=== PATIENT | female | born 1970 | race Caucasian/White ===

== ENCOUNTER → 2018-08-05 10:23 | Outpatient (CLI) | payer SELFPAY ==
[2018-08-05 12:24] LABS: Absolute Lymphocyte Count 1.55 X10^3/ul (0.83-4.51); Basophil# 0.02 X10^3/uL; Basophil% 0.3 % (0-1); Eosinophil# 0.09 X10^3/uL; Eosinophils% 1.5 % (0-5); Lymphocyte # 1.55 X10^3/ul (4.0); Lymphocyte % 25.5 % (19-41); Mean Corp Hgb Conc 33.3 g/gl (32-36); Mean Corpuscular Hgb 31.4 pg (27.0-32.0); Mean Corpuscular Volume 94.2 fL (81-99); Mean Platelet Vol. 12.4 fl (6.2-12.0); Monocyte# 0.41 X10^3/uL; Monocyte% 6.7 % (0-10); Neutrophil # 4.01 X10^3/uL (2.7-7.7); Platelet Count 208 K/mm3 (150-450); RBC Distribution Width CV 12.5 % (11.6-14.6); Red Blood Count 4.46 M/mm3 (4.2-5.4); White Blood Count 6.1 K/mm3 (4.4-11.0)
[2018-08-05 12:43] LABS: POSITIVE COUNT NO; POSITIVE DIFFERENTIAL NO; POSITIVE MORPHOLOGY NO
[2018-08-05 12:54] LABS: Color, Urine Yellow (Yellow); Glucose, Dipstick Normal (Normal); Ketone-Dipstick Negative (Negative); Leukocyte Esterase-Dipstick 100 /ul (Negative); Nitrite-Dipstick Negative (Negative); Occult Blood-Urine Negative /ul (Negative); Protein-Dipstick Negative (Negative); Specific Gravity, Urine 1.005 (1.002-1.030); Urine Bilirubin Dipstick Negative (Negative); Urine Clarity Sl. Cloudy (Clear); Urine Urobilinogen Normal (Normal); Urine pH 6.5 (5.0 - 8.0)
[2018-08-05 12:56] LABS: Protein, Urine (Random) 8.7 mg/dL (<11.9); Protein:Creat Ratio 138 mg/g CRE (0-200)
[2018-08-05 12:57] LABS: ALB/GLOB Ratio 1.1 RATIO (0.9-2.4); AST(SGOT) 24 U/L (15-37); Alanine Aminotransfer ALT/SGPT 46 U/L (13-56); Alkaline Phosphatase 73 U/L (45-117); Anion Gap 9 (5-15); BUN 10 mg/dL (7-18); BUN/Creat Ratio 14.1 RATIO (10-20); Calcium,Total 8.9 mg/dL (8.5-10.1); Chloride 105 mmol/L (98-107); Creatinine, Serum 0.71 mg/dL (0.55-1.02); EST Glomerular Filtration Rate 94 mL/min (>60); Est Glom Filt Rate - Afr Amer 114 mL/min (>60); Globulin 3.6 g/dL (2.2-4.2); Glucose 87 mg/dL (74-106); Potassium 3.7 mmol/L (3.5-5.1); Protein, Total 7.6 g/dL (6.4-8.2); Sodium Level 141 mmol/L (136-145)
[2018-08-05 12:59] LABS: Vitamin D,25 Hydroxy 22.5 ng/mL (29.95-100.01)
[2018-08-06 10:21] LABS: Complement C3 162 mg/dL (82-167)
[2018-08-07 09:49] LABS: Anti-dsDNA Ab 5 IU/mL (0-9)
--- OUTSIDE RECORDS SUMMARY | 2018-09-17 02:19 | XMS RPT_ITS | Clinical Summary ---
:1970 Author Organization 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 A Unspecified (ICD-10-CM 02/19 02/19 Antony lump in breast ) Overweight 796809315 Active Mela A Overweight (SNOMED 02/19 02/[address]) Status post Z90.89 Active Mela A Acquired lap trina cholecystectomy (ICD-10-CM 02/19 02/19 Antony absence of ) other organs Lupus 757672292 Active Mela A Lupus (SNOMED 02/19 02/[address]) Arthritis 2010639 Active Mela A Arthritis (SNOMED 02/19 02/[address]) Lymphoma 308665177 Active Mela A Malignant (SNOMED 02/19 02/[address]) (clinical) Medications Medication Instructions Start Stop Generic Name NDC Provider Date Date PLAQUENIL 200 Two tablets by / HYDROXYCHLOROQUINE [id number] Mela A MG TABS mouth daily 13 SULFATE Antony Medications Administered No information available. Allergies, Adverse Reactions, Alerts Allergy Name Reaction Description Start Date Severity Status Provider LATEX rash Mild Active Mela A Antony Results Date Name Value Unit Range Flag Description Lab Report: CMP ANION GAP 7 5-15 N anion gap, serum CO2 29.0 mmol/L 21.0-32.0 N carbon dioxide, venous blood CHLORIDE 105 mmol/L 98-107 N chloride, serum POTASSIUM 3.4 mmol/L 3.5-5.1 L potassium, serum SODIUM 141 mmol/L 136-145 N sodium, serum BILI TOTAL 0.40 mg/dL 0.00-1.00 N bilirubin, serum, total SGPT (ALT) 21 U/L 12-78 N alanine aminotransferase (SGPT), serum ALK PHOS 57 U/L 50-136 N alkaline phosphatase, serum SGOT (AST) 15 U/L 15-37 N aspartate aminotransferase (SGOT), serum CALCIUM 8.7 mg/dL 8.5-10.1 N calcium, serum A/G RATIO 1.2 RATIO 0.9-2.4 N albumin/globulin ratio, serum GLOBULIN TOT 3.3 g/dL 2.7-4.2 N globulins, serum, total ALBUMIN 4.0 g/dL 3.4-5.0 N albumin, serum PROTEIN, TOT 7.3 g/dL 6.4-8.2 N protein, total, serum BUN/CREAT 15.7 RATIO 10-20 N urea nitrogen/creatinine ratio, serum GFRAA 119 mL/min >60 N Glomerular Filtration rate GFR EST 98 mL/min >60 N estimated glomerular filtration rate CREATININE 0.7 mg/dL 0.6-1.0 N creatinine, serum BUN 11 mg/dL 7-18 N urea nitrogen, blood GLUCOSE SER 86 mg/dL 70-110 N blood glucose Lab Report: [facility] PROTEIN UR 16.2 mg/dL <11.9 H Protein [Mass] in unspecified time Urine CREATIN UR 105.3 mg/dL NO RANGE EST. N creatinine, random, urine Lab Report: [facility] ZZ-GE-unk 0-5 SEEN /lpf 0-5 N GE use only - for [employer] import when terms are not otherwise specified SPEC GR URIN 1.015 1.002-1.030 N specific gravity, urine Lab Report: C3 C3 COMPLIMEN 116 (?) mg/dL 90-180 N complement C3, serum Lab Report: C4 C4 COMPLIMEN 27 (?) mg/dL 9-36 N complement C4, serum Lab Report: [facility] ANTI-DS-DNA 5 0-9 N anti double stranded DNA Lab Report: [facility] ABS PMNS 3.4 X10 3/UL {Cells}/uL 2.0-7.7 N Absolute Neutrophil count BASOPHIL % 0.9 % 0-1 N basophils as percent of blood leukocytes EOSINOPHIL % 0.9 % 0-5 N eosinophils as percent of blood leukocytes MONOCYTE % 7.8 % 0-10 N monocytes as percent of blood leukocytes LYMPHS % 26.4 % 19-41 N lymphocytes as percent of blood leukocytes PMN % 64.1 % 47-70 N neutrophils as percent of blood leukocytes MPV 9.7 fL 6.2-12.0 N mean platelet volume PLATELETS 175 10*3/mm3 150-450 N platelet count RDW 11.4 % 11.6-14.6 L red blood cell distribution width MCHC RBC 35.1 g/dL 32-36 N mean corpuscular hemoglobin concentration, RBC MCH 32.3 pg 27.0-32.0 H mean corpuscular hemoglobin, RBC MCV 91.9 fL 81-99 N mean corpuscular volume, RBC HCT 40.6 % 37-47 N hematocrit, blood HGB 14.3 g/dL 12.0-15.0 N hemoglobin, blood RBC M/UL 4.42 10*6/uL 4.2-5.4 N red blood count WBC BLOOD 5.3 10*9/L 4.4-11.0 N leukocyte (white blood cells) count, blood Office Visit: s/p excision of cutaneous lymphoma 03/15/17 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 Vital Signs Date Name Value Unit Description BMI (Body Mass Index) 30.54 kg/m2 Body Mass Index [Ratio] Body Temperature 98.4 [degF] temperature E&M BP Diastolic 83 mm[Hg] blood pressure, diastolic - 8462-4 BP Systolic 138 mm[Hg] blood pressure, systolic - 8480-6 Heart Rate 77 /min pulse rate E&M - 8867-4 Height 67 [in_us] height E&M - 8302-2 Respiratory Rate 20 /min respiratory rate E&M - 9279-1 Weight Measured 195.0 [lb_av] weight E&M - 3141-9
--- OUTSIDE RECORDS SUMMARY | 2018-09-17 02:19 | XMS RPT_ITS | Clinical Summary ---
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 Mela A Unspecified (ICD-10-CM 02/19 02/19 Antony lump in breast ) Overweight 286613784 Active Mela A Overweight (SNOMED 02/19 02/[address]) Status post Z90.89 Active Mela A Acquired lap trina cholecystectomy (ICD-10-CM 02/19 02/19 Antony absence of ) other organs Lupus 805308378 Active Mela A Lupus (SNOMED 02/19 02/[address]) Arthritis 3848527 Active Mela A Arthritis (SNOMED 02/19 02/[address]) Lymphoma 495347102 Active Mela A Malignant (SNOMED 02/19 02/[address]) (clinical) Medications Medication Instructions Start Stop Generic Name NDC Provider Date Date PLAQUENIL 200 Two tablets by / HYDROXYCHLOROQUINE [id number] Mela A MG TABS mouth daily 13 [...] EST. 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
--- OUTSIDE RECORDS SUMMARY | 2018-09-17 02:19 | XMS RPT_ITS | Clinical Summary ---
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 Mela A Unspecified (ICD-10-CM 02/19 02/19 Antony lump in breast ) Overweight 750922408 Active Mela A Overweight (SNOMED 02/19 02/[address]) Status post Z90.89 Active Mela A Acquired lap trina cholecystectomy (ICD-10-CM 02/19 02/19 Antony absence of ) other organs Lupus 331574300 Active Mela A Lupus (SNOMED 02/19 02/[address]) Arthritis 5005172 Active Mela A Arthritis (SNOMED 02/19 02/[address]) Lymphoma 572179664 Active Mela A Malignant (SNOMED 02/19 02/[address]) (clinical) Medications Medication Instructions Start Stop Generic Name NDC Provider Date Date PLAQUENIL 200 Two tablets by / HYDROXYCHLOROQUINE [id number] Mela A MG TABS mouth daily 13 [...] EST. 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
--- OUTSIDE RECORDS SUMMARY | 2018-09-17 02:19 | XMS RPT_ITS | Clinical Summary ---
:1970 Author Organization [facility], 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 Mela A Unspecified (ICD-10-CM 02/19 02/19 [place]y lump in breast ) Overweight 889651161 Active Mela A Overweight (SNOMED 02/19 02/[address]) Status post Z90.89 Active Mela A Acquired lap trina cholecystectomy (ICD-10-CM 02/19 02/19 Antony absence of ) other organs Lupus 464575668 Active Mela A Lupus (SNOMED 02/19 02/[address]) Arthritis 5105846 Active Mela A Arthritis (SNOMED 02/19 02/[address]) Lymphoma 881374199 Active Mela A Malignant (SNOMED 02/19 02/[address]) (clinical) Medications Medication Instructions Start Stop Generic Name NDC Provider Date Date PLAQUENIL 200 Two tablets by / HYDROXYCHLOROQUINE [id number] Mela A MG TABS mouth daily 13 [...] N creatinine, random, urine Lab Report: [facility] ZZ-GE-unk 0-5 SEEN /lpf 0-5 N GE [...] s/p excision of cutaneous lymphoma 03/15/17 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
--- OUTSIDE RECORDS SUMMARY | 2018-09-17 02:19 | XMS RPT_ITS | Clinical Summary ---
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 Mela A Unspecified (ICD-10-CM 02/19 02/19 [place]y lump in breast ) Overweight 895875366 Active Mela A Overweight (SNOMED 02/19 02/[address]) Status post Z90.89 Active Mela A Acquired lap trina cholecystectomy (ICD-10-CM 02/19 02/19 Antony absence of ) other organs Lupus 366887500 Active Mela A Lupus (SNOMED 02/19 02/[address]) Arthritis 5589959 Active Mela A Arthritis (SNOMED 02/19 02/[address]) Lymphoma 446535754 Active Mela A Malignant (SNOMED 02/19 02/[address]) (clinical) Medications Medication Instructions Start Stop Generic Name NDC Provider Date Date PLAQUENIL 200 Two tablets by / HYDROXYCHLOROQUINE [id number] Mela A MG TABS mouth daily 13 [...] EST. N creatinine, random, urine Lab Report: [facility] ZZ-GE-unk 0-5 SEEN /lpf 0-5 [...] N leukocyte (white blood cells) count, blood Plan of Care Type Date Detail Appointment 11:00 AM Shima Gonzalez MD, [address] [place] [address], [address], [place], [address] Procedures No information available. Vital Signs No information available.
--- OUTSIDE RECORDS SUMMARY | 2018-09-17 02:20 | XMS RPT_ITS ---
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 / Community M06.4(ICD-10) Hospital Repository 08/05/2018 Unknown Z79.899 - Other long Jerodlanki, Angeline Active [facility] term (current) drug Community therapy / Hospital Z79.899(ICD-10) Repository 08/05/2018 Unknown M35.8 - Other Vellanki, Angeline Active [facility] specified systemic Community involvement of Hospital connective tissue / Repository M35.8(ICD-10) 08/05/2018 Unknown G43.809 - Other Vellanki, Angeline Active [place] migraine, not Community intractable, without Hospital status migrainosus / Repository G43.809(ICD-10) 08/05/2018 Unknown M25.512 - Pain in Vellanki, Angeline Active [place] left shoulder / Community M25.512(ICD-10) Hospital Repository 08/05/2018 Unknown K21.9 - Angeline Kumari Active [place] Gastro-esophageal [facility] reflux disease Hospital without esophagitis / Repository K21.9(ICD-10) 08/05/2018 Unknown K76.0 - Fatty (change Angeline Kumari Active [place] of) liver, not Community elsewhere classified Hospital / K76.0(ICD-10) Repository 03/19/2018 Unknown C82.68 - [facility] [place] [facility] Community lymphoma, lymph nodes Hospital of multiple sites / Repository C82.68(ICD-10) 03/19/2018 Unknown C85.80 - Other [facility] Roland Active [place] specified types of Community non-Hodgkin lymphoma, Hospital unspecified site / Repository C85.80(ICD-10) PROCEDURES PROCEDURES No Procedure Records FoundRESULTS RESULTS CBC W/DIFF, AUTOMATED Collected: 08/05/2018 Status: F Source: CAM 10:36 AM [facility] HOSPITAL REPOSITORY TYPE CODE TESTS RESULT OUT OF RANGE REFERENCE UNITS LAB L100.1000 4.4-11.0 K/mm3 Normal WBC 6.1 LAB L100.1200 4.2-5.4 M/mm3 Normal RBC 4.46 LAB L100.1300 12.0-15.0 g/dl Normal HGB 14.0 LAB L100.1400 37-47 % Normal HCT 42.0 LAB L100.1500 81-99 fL Normal MCV 94.2 LAB L100.1600 27.0-32.0 pg Normal MCH 31.4 LAB L100.1700 32-36 g/gl Normal MCHC 33.3 LAB L100.1810 11.6-14.6 % Normal RDW CV 12.5 LAB L100.1820 35.1-43.9 fl Normal RDW SD 43.0 LAB L100.1900 150-450 K/mm3 Normal PLT 208 LAB L100.2000 6.2-12.0 fl High MPV 12.4 LAB L100.2100 47-70 % Normal NEUT% 66.0 LAB L100.2200 19-41 % Normal LY% 25.5 LAB L100.2300 0-10 % Normal MONO% 6.7 LAB L100.2400 0-5 % Normal EO% 1.5 LAB L100.2500 0-1 % Normal BASO% 0.3 LAB L100.2550 0.0-0.9 % Normal IM GRAN % 0.000 Result Comment: IG% - Immature Granulocytes (promyelocytes, myelocytes and metamyelocytes) > 1% indicates that a LEFT SHIFT is Present. LAB L100.2620 2.0-7.7 X10 3/uL Normal Absolute Neut 4.0 LAB L100.2720 0.83-4.51 X10 3/ul Normal Absolute Lymph 1.55 Performed By: #### L100.0100 #### [facility] [address] [place], [address] URINALYSIS, ROUTINE Collected: 08/05/2018 Status: F Source: [place] (DIPSTICK) 10:[address] [facility] REPOSITORY Order Comment: How was Urine Obtained? CLEAN CATCH TYPE CODE TESTS RESULT OUT OF RANGE REFERENCE UNITS LAB L400.3000 Yellow COLOR Normal Yellow LAB L400.3050 Clear Normal CLARITY Sl. Cloudy LAB L400.3200 Normal mg/dl Normal GLUCOSE, UR Normal LAB L400.3300 Negative mg/dL Normal BILIRUBIN URINE Negative LAB L400.3400 Negative mg/dl Normal KETONE UR Negative LAB L400.3465 1.002-1.030 Normal SP.GR. DIPSTX 1.005 LAB L400.3550 5.0 - 8.0 pH UR Normal 6.5 LAB L400.3600 Negative mg/dl PROT Normal DIPSTX Negative LAB L400.3700 Normal mg/dl Normal UROBILI Normal LAB L400.3750 Negative Normal NITRITE UR Negative LAB L400.3780 Negative /ul Normal OCCULT BLOOD-UR Negative LAB L400.3800 Negative /ul High LEUK ESTERASE 100 Performed By: #### L400.2010 #### [facility] [address] [place], [place], [id number] PROTEIN+CREATININE Collected: Status: F Source: CAM RATIO,URINE 08/05/2018 10:[address] [facility] REPOSITORY TYPE CODE TESTS RESULT OUT OF RANGE REFERENCE UNITS LAB L501.1200 NO RANGE EST. mg/dL Normal UR CREAT 63.10 LAB L501.1930 <11.9 mg/dL Normal 8.7 PROTEIN,UR.R AN. LAB L501.1940 0-200 mg/g CRE Normal PROT:CRE 138 RATIO Performed By: #### L501.0900 #### [facility] [address] [place], [place], [address] COMPREHENSIVE METABOLIC Collected: 08/05/2018 Status: F Source: CAM [place] 10:[address] [facility] REPOSITORY TYPE CODE TESTS RESULT OUT OF RANGE REFERENCE UNITS LAB L501.0100 74-106 mg/dL Normal GLU 87 Result Comment: Please note revised GLUCOSE reference range effective 2017. LAB L501.1000 7-18 mg/dL Normal BUN 10 LAB L501.1100 0.55-1.02 mg/dL Normal CREAT,SERUM 0.71 Result Comment: The validity of the calculated GFR AND GFRAA in patients over 70 years has not been determined. Clinical correlation is essential. LAB L501.1110 >60 mL/min Normal EST GFR 94 Result Comment: Non- GFR Calc LAB L501.1115 >60 mL/min Normal EST GFR - AA 114 Result Comment: GFR Calc LAB L501.1300 10-20 RATIO Normal BUN/CRE 14.1 LAB L501.1500 6.4-8.2 g/dL T Normal PROT 7.6 LAB L501.1800 3.2-5.0 g/dL Normal ALB 4.0 LAB L501.1950 2.2-4.2 g/dL Normal GLOB 3.6 LAB L501.2000 0.9-2.4 RATIO Normal A/G 1.1 LAB L501.2200 8.5-10.1 mg/dL CA Normal 8.9 LAB L501.4100 15-37 U/L Normal AST 24 LAB L501.4305 45-117 U/L Normal ALK P 73 LAB L501.4405 13-56 U/L Normal ALT 46 LAB L501.4600 0.20-1.00 mg/dL T Normal BILI 0.60 LAB L501.5300 136-145 mmol/L NA Normal 141 LAB L501.5600 3.5-5.1 mmol/L K Normal 3.7 LAB L501.5900 98-107 mmol/L CL Normal 105 LAB L501.6100 21.0-32.0 mmol/L Normal CO2 27.0 LAB L501.6200 5-15 Normal GAP 9 Performed By: #### L500.4050 #### [facility] [address] [facility] [place], [place], [address] VITAMIN D,25 HYDROXY Collected: 08/05/2018 Status: F Source: [place] 10:[address] [facility] REPOSITORY TYPE CODE TESTS RESULT OUT OF REFERENCE UNITS RANGE LAB L506.1000 29.95-100.01 ng/mL Low Vitamin D 22.5 25-OH Result Comment: Vitamin D 25(OH) Status Range Deficiency <20 ng/mL (50nmol/L) Insuffciency 20 - 30 ng/mL (50 - 75 nmol/L) Sufficiency 30 - 100 ng/mL (75 - 250 nmol/L) Toxicity >100 ng/mL (>250 nmol/L) Performed By: #### L506.1000 #### [facility] [address] [place], [place], [address] COMPLEMENT C3 Collected: 08/05/2018 Status: F Source: [place] 10:[address] [facility] REPOSITORY TYPE CODE TESTS RESULT OUT OF RANGE REFERENCE UNITS LAB L3100.5700 82-167 mg/dL Normal COMP C3 162 Result Comment: Performed at: [facility] [address] [id number] Community Affairs Director: Stone Morales PhD, Phone: [phone] Performed By: #### L3100.5700, L3100.5800 #### [facility] (refer to report for specific site) refer to report for address and phone number COMPLEMENT C4 Collected: 08/05/2018 Status: F Source: [place] 10:[address] [facility] REPOSITORY TYPE CODE TESTS RESULT OUT OF RANGE REFERENCE UNITS LAB L3100.5800 14-44 mg/dL Normal COMP C4 29 Performed By: #### L3100.5700, L3100.5800 #### [facility] (refer to report for specific site) refer to report for address and phone number ANTI-DSDNA AB Collected: 08/05/2018 Status: F Source: [place] 10:[address] [facility] REPOSITORY TYPE CODE TESTS RESULT OUT OF RANGE REFERENCE UNITS LAB L3100.5500 0-9 IU/mL Normal dsDNA AB 5 Result Comment: Negative <5 Equivocal 5 - 9 Positive >9 Performed at: [facility] [address] [id number] Community Affairs Director: Stone Morales PhD, Phone: [phone] Performed By: #### L3100.5500 #### [facility] (refer to report for specific site) refer to report for address and phone number ONCOLOGY VISIT REPORT Observed: 01/28/2018 Status: F Source: [place] 2:[address] [facility] REPOSITORY [facility] [place] [address] OFFICE VISIT Date of Service: 01/28/18 1408 MR#: [id number] Acct: [id number] Name: SEGUN PACHECO Rep #: [id number] : 1970 From: Roland Mora MD Age/Sex: 47/F Location: OMD Status: Signed Subjective - Date of Service Date of Service:: 01/28/18 - Chief Complaint F/u for cutaneous lymphoma. - History of Present Illness Ms. 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 She underwent resections on 10/21/2009 and 12/08/2009. She developed a new nodule in between the shoulders February 2017, thus she had excisional biopsy on 03/15/2017 under the care of Dr. Gonzalez. Bx showed Cutaneous B-cell follicular lymphoma. She went on to complete course of radiation, 30 Gy in 15 fractions to upper back 04/08/17-04/26/[address] Preston. She is on observation, comes in for follow up. She feels well, no new swellings. - Past Medical/Social History Past Medical History Past Medical History: Arthritis,Headaches,Lupus Other Past Medical History: MIXED CONNECTIVE TISSUE DISEASE Cancer: Lymphoma Past Surgical History Surgical: Cholecystectomy Other Surgical History: TUMOR REMOVED FROM BACK VITRO LAPAROSCOPIC Family History Paternal Past Medical History: Unknown Paternal History of Cancer Lung cancer Maternal Past Medical History: Arthritis,Obesity,Stroke Social History Social History: No changes Smoking Status Never smoker Review of Systems Constitutional:: Denies: Fever, Sweats, Weight loss, Appetite change, Chills Cardiovascular:: Denies: Chest pain, Palpitations, Dyspnea on exertion, Orthopnea, PND, Shortness of breath Respiratory: Denies: Cough, Hemoptysis, Shortness of Breath, Wheezing Gastrointestinal:: Denies: Abdominal pain, Nausea, Vomiting, Diarrhea, Constipation, Hematochezia Genitourinary: Denies: Dysuria, Hematuria, 15, Flank pain Musculoskeletal:: Denies: Back pain, Myalgia, Arthralgia Skin: Denies: Rash, Skin Changes, Wounds Neurological:: Denies: Headache, Dizziness, Visual changes, Tinnitus, Hearing loss Psychiatric: Denies: Anxiety, Depression, Homicidal Ideations, Suicidal Ideations Vital Signs Height 5 ft 7 in Weight: 88.451 kg Weight in Pounds 195.0 lbs Pulse Ox 100 - Physical Exam General: Alert, Oriented x3, No apparent distress HEENT: Atraumatic, PERRLA, EOMI, Normocephalic Oropharynx:: Dry mucosa Neck:: Supple, Trachea midline. Negative for: JVD, bilateral Cardiac:: Regular rate, Regular rhythm, Normal S1, Normal S2. Negative for: Murmur Lungs: Clear to auscultation, Excusion symmetrical. Negative for: Rhonchi, Wheezes Abdomen:: Bowel sounds x 4, Soft, Non-tender, Non-distended. Negative for: Hepatosplenomegaly Extremities:: Negative for: Cyanosis, Edema Neurological: Neuro grossly intact Skin:: - - scars upper back.. Negative for: Lesions, Rash, Petechiae, Ecchymosis Psychiatric:: Appropriate affect, Euthymic Lymphatics:: Negative for: Cervical lymphadenopathy, Supraclavicular lymphadenopathy, Axillary lymphadenopathy Laboratory Data: Laboratory Tests WBC 7.0 (4.4-11.0) K/mm3 RBC 4.51 (4.2-5.4) M/mm3 Hgb 14.6 (12.0-15.0) g/dl Hct 42.7 (37-47) % MCV 94.7 (81-99) fL Assessment and Plan Recurrent Cutaneous B-Cell Follicular lymphoma, no evidence of disease clinically. Discussed disease status with pt. Plan is to continue observation. RTC 12 months with CBC, CMP/LDH. Primary Care Provider: Sharifa Anand PA-C Referring Provider: - Problem List (1) Cutaneous B-cell lymphoma Status: Chronic Code Visit Office Visits / Consults: [id number] OV L3 Est 01/28/18 1415 <Electronically signed by Roland Mora MD> Date Roland Mora MD Cosigner Signature: Date (if applicable) CC: CBC W/DIFF, AUTOMATED Collected: 01/28/2018 Status: F Source: CAM 12:[address] [facility] REPOSITORY Order Comment: Reason for Laboratory Test OV TYPE CODE TESTS RESULT OUT OF RANGE REFERENCE UNITS LAB L100.1000 4.4-11.0 K/mm3 Normal WBC 7.0 LAB L100.1200 4.2-5.4 M/mm3 Normal RBC 4.51 LAB L100.1300 12.0-15.0 g/dl Normal HGB 14.6 LAB L100.1400 37-47 % Normal HCT 42.7 LAB L100.1500 81-99 fL Normal MCV 94.7 LAB L100.1600 27.0-32.0 pg High MCH 32.4 LAB L100.1700 32-36 g/gl Normal MCHC 34.2 LAB L100.1810 11.6-14.6 % Normal RDW CV 12.3 LAB L100.1820 35.1-43.9 fl Normal RDW SD 41.8 LAB L100.1900 150-450 K/mm3 Normal PLT 170 LAB L100.2000 6.2-12.0 fl Normal MPV 11.9 LAB L100.2100 47-70 % Normal NEUT% 67.6 LAB L100.2200 19-41 % Normal LY% 23.1 LAB L100.2300 0-10 % Normal MONO% 7.3 LAB L100.2400 0-5 % Normal EO% 1.6 LAB L100.2500 0-1 % Normal BASO% 0.3 LAB L100.2550 0.0-0.9 % Normal IM GRAN % 0.100 Result Comment: IG% - Immature Granulocytes (promyelocytes, myelocytes and metamyelocytes) > 1% indicates that a LEFT SHIFT is Present. LAB L100.2620 2.0-7.7 X10 3/uL Normal Absolute Neut 4.8 LAB L100.2720 0.83-4.51 X10 3/ul Normal Absolute Lymph 1.62 Performed By: #### L100.0100 #### [facility] [address] [place], [address] COMPREHENSIVE METABOLIC Collected: 01/28/2018 Status: F Source: CAM [facility] 12:[address] [facility] REPOSITORY Order Comment: Reason for Laboratory Test OV Serial Specimen #1, #2 or #3? 1 TYPE CODE TESTS RESULT OUT OF RANGE REFERENCE UNITS LAB L501.0100 74-106 mg/dL Normal GLU 97 Result Comment: Please note revised GLUCOSE reference range effective 2017. LAB L501.1000 7-18 mg/dL Normal BUN 10 LAB L501.1100 0.55-1.02 mg/dL Normal CREAT,SERUM 0.67 Result Comment: The validity of the calculated GFR AND GFRAA in patients over 70 years has not been determined. Clinical correlation is essential. LAB L501.1110 >60 mL/min Normal EST GFR 101 Result Comment: Non- GFR Calc LAB L501.1115 >60 mL/min Normal EST GFR - AA 122 Result Comment: GFR Calc LAB L501.1255 ml/min Normal Estimated CRCL 103.11 LAB L501.1300 10-20 RATIO BUN/CRE Normal 14.9 LAB L501.1500 6.4-8. g/dL 2 T PROT Normal 7.7 LAB L501.1800 3.2-5. g/dL 0 ALB Normal 4.1 LAB L501.1950 2.2-4. g/dL 2 GLOB Normal 3.6 LAB L501.2000 0.9-2. RATIO 4 A/G Normal 1.1 LAB L501.2200 8.5-10 mg/dL .1 CA Normal 8.5 LAB L501.4100 15-37 U/L AST Normal 25 LAB L501.4305 45-117 U/L ALK P Normal 57 LAB L501.4405 13-56 U/L ALT Normal 42 LAB L501.4600 0.20-1 mg/dL .00 T BILI Normal 0.40 LAB L501.5300 136-14 mmol/L 5 NA Normal 140 LAB L501.5600 3.5-5. mmol/L 1 K Normal 4.1 LAB L501.5900 98-107 mmol/L High CL 108 LAB L501.6100 21.0-3 mmol/L 2.0 CO2 Normal 25.0 LAB L501.6200 5-15 GAP Normal 7 Performed By: #### L500.4050, L504.2610 #### [facility] [address] [place], [address] LDH Collected: 01/28/2018 Status: F Source: CAM 12:[address] [facility] REPOSITORY Order Comment: Reason for Laboratory Test OV Serial Specimen #1, #2 or #3? 1 TYPE CODE TESTS RESULT OUT OF RANGE REFERENCE UNITS LAB L504.2610 84-246 U/L Normal LDH 231 Performed By: #### L500.4050, L504.2610 #### [facility] [address] [place], [address] ALLERGIES ALLERGIES DATE TYPE / CODE NAME / CODE REACTION SEVERITY SOURCE 01/28/2018 Drug latex/[id number] Rash Unknown [facility] Allergy/4160 8921(RXNORM) Hospital 76843(SNOMED Repository CT) ENCOUNTERS ENCOUNTERS ADMIT/DISCHARGE ACCOUNT ADMITTING ENCOUNTER LOCATION SOURCE NUMBER CLASS 08/05/2018 [id number] Ambulatory [facility] [place] 1 [facility] ing:MTLAB Repository 01/28/2018 [id number] Ambulatory [place] A[facility] 8 [facility] ing:OMD Repository 01/28/2018 [id number] Ambulatory BMSBuilding:B Cam 3 MS.CF.WMO [facility] Repository PAYERS PAYERS ENCOUNTER GUARANTOR PAYER SUBSCRIBER SOURCE 08/05/2018 SEGUN R Primary NOT GIVENALISIA Levy [id number] TR Insurance:SELF PAY [place] [id number]: Number: Effective Repository Date:2018-08-05 () 01/28/2018 SEGUN R Primary Suleman Leyv [id number] TR Insurance:Ayaz GrafOB: [address] [facility] *Not [id number] [address]Soi: contracted*Policy Repository Number: () [id number] Date:[id number] [address] [place] [address]YX: 01/28/2018 Secondary NOT GIVENUNK [place] Insurance:SELF PAY [facility] Number: Effective Repository Date:2017-02-12 01/28/2018 SEGUN R Primary Suleman [place] [id number] TR Insurance:MOLINAPolic StrouseDOB: Community [facility], y [facility]: [id number] [address]J[facility]: [id number] Repository Date:[id number] [address] ) [address], [place] [address]IM: 01/28/2018 Secondary NOT GIVENUNK [place] Insurance:SELF PAY [facility] Number: Effective Repository Date:2018-01-28
== END ==
PROVIDERS: Family Provider Family Medicine; PCP Family Medicine; Referring Provider Internal Medicine Rheumatology; Visit Provider Internal Medicine Rheumatology
DX: M06.4 Inflammatory polyarthropathy (principal); Z79.899 Other long term (current) drug therapy; M35.8 Other specified systemic involvement of connective tissue; G43.809 Other migraine, not intractable, without status migrainosus; M25.512 Pain in left shoulder; K21.9 Gastro-esophageal reflux disease without esophagitis; K76.0 Fatty (change of) liver, not elsewhere classified
CPT/HCPCS: 36415; 80053; 81002; 82306; 82570; 84156; 85025; 86160; 86225